=== PATIENT | female | born 1970 | race African-American/Black ===

== ENCOUNTER 2022-06-16 14:51 | Outpatient (CLI) | payer OTHER | END 2022-06-16 14:52 | disposition home or self-care (01) | LOC: NAV RAD 14:51 | PROVIDERS: ATTEND Family Medicine | DX: M15.9 Polyosteoarthritis, unspecified (principal); M47.816 Spondylosis without myelopathy or radiculopathy, lumbar region; M47.818 Spondylosis without myelopathy or radiculopathy, sacral and sacrococcygeal region | CPT/HCPCS: 72100 ==